=== PATIENT | female | born 1990 | race Caucasian/White ===

== ENCOUNTER → 2017-03-13 | Outpatient (REF) | payer OTHER, MEDICAID | LOC: M LAB REF 13:12 | DX: Z12.4 Encounter for screening for malignant neoplasm of cervix (principal) ==

== ENCOUNTER → 2019-02-19 | Outpatient (REF) | payer OTHER ==
[~2019-02-19] MED LIST: IBUP80TA PO; MAPA500T2 PO; PERC5TAB12 PO; VITAPRTA PO
== END ==
LOC: M SFHCWAGY 10:22
PROVIDERS: ATTEND Specialist
DX: Z01.419 Encounter for gynecological examination (general) (routine) without abnormal findings (principal)

== ENCOUNTER → 2021-08-24 | Outpatient (REF) | payer OTHER, MEDICAID | LOC: M SFHCWAGY 19:13 | PROVIDERS: ATTEND Specialist | DX: Z01.419 Encounter for gynecological examination (general) (routine) without abnormal findings (principal) ==